=== PATIENT | female | born 2000 | race Hispanic/Latino ===

== ENCOUNTER 2021-02-01 23:42 | Emergency (ER) | payer OTHER, BC ==
[2021-02-02] MEDS ORDERED: Lidocaine 1% (PF) 30 ML VIAL ONE (00:26)
[2021-02-02] MEDS ORDERED: Boostrix 0.5 ML (Tdap) VIAL ONE (01:33)
== END 2021-02-02 01:55 | disposition home or self-care (01) ==
LOC: MADERS 23:42
DX: S01.81XA Laceration without foreign body of other part of head, initial encounter (principal); V43.63XA Car passenger injured in collision with pick-up truck in traffic accident, initial encounter; Z23 Encounter for immunization; Z79.899 Other long term (current) drug therapy
CPT/HCPCS: 12013; 70450; 72125; 90471; 90715; G0390; J2001